=== PATIENT | female | born 1975 ===

== ENCOUNTER 2021-09-20 16:38 | Emergency (ER) | payer SELFPAY ==
[2021-09-20 16:59] VITALS: BP 184/95
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
== END 2021-09-21 02:30 | disposition home or self-care (01) ==
LOC: ED 16:38
DX: S39.012A Strain of muscle, fascia and tendon of lower back, initial encounter (principal); R51.9 Headache, unspecified; M54.2 Cervicalgia; Z79.899 Other long term (current) drug therapy; V87.7XXA Person injured in collision between other specified motor vehicles (traffic), initial encounter; Y93.89 Activity, other specified; Y92.488 Other paved roadways as the place of occurrence of the external cause; Y99.8 Other external cause status
CPT/HCPCS: 70450; 72040; 72100; 99284